=== PATIENT | female | born 1975 | race Caucasian/White ===

== ENCOUNTER → 2024-05-03 11:34 | Outpatient (REF) | payer OTHER, SELFPAY | LOC: RAD 11:34 | PROVIDERS: ATTENDING PHYSICIAN Family Medicine | DX: R51.9 Headache, unspecified (principal) | CPT/HCPCS: 70450 ==

== ENCOUNTER → 2024-06-03 12:03 | Outpatient (REF) | payer OTHER, SELFPAY ==
[2024-06-06 05:15] LABS: Lamotrigine (Lamictal) 9.2 ug/mL (3.0-15.0)
== END ==
LOC: RAD 12:03
PROVIDERS: ATTENDING PHYSICIAN Emergency Medicine; REFERRING PHYSICIAN Nurse Practitioner Family
DX: R51.9 Headache, unspecified (principal)
CPT/HCPCS: 36415; 70496; 70498; 80175; Q9967

== ENCOUNTER → 2024-07-18 11:34 | Outpatient (REF) | payer OTHER, SELFPAY | LOC: RAD 11:34 | PROVIDERS: ATTENDING PHYSICIAN Emergency Medicine | DX: R93.89 Abnormal findings on diagnostic imaging of other specified body structures (principal); R51.9 Headache, unspecified | CPT/HCPCS: 93880 ==

== ENCOUNTER → 2025-03-29 12:58 | Outpatient (REF) | payer OTHER, SELFPAY | LOC: RAD 12:58 | PROVIDERS: ATTENDING PHYSICIAN Surgery Vascular Surgery; FAMILY PHYSICIAN Emergency Medicine | DX: I65.23 Occlusion and stenosis of bilateral carotid arteries (principal) | CPT/HCPCS: 93880 ==